=== PATIENT | male | born 1965 | race Caucasian/White ===

== ENCOUNTER 2021-01-05 10:43 | Emergency (ER) | payer MEDICAID ==
[~2021-01-05] VITALS: Ht 157.5 cm; Wt 77.1 kg
[2021-01-05 10:43] VITALS: BP_SYST 144
--- NOTE | 2021-01-05 10:44 | NUR ---
BROUGHT BACK TO BED #4 AND TRIAGED, REPORT GIVEN TO ZEYAD
--- NOTE | 2021-01-05 10:56 | NUR ---
Thais flores in [facility] - 01/05/21 at 1130 by [id number] MD AT BEDSIDE
--- NOTE | 2021-01-05 11:20 | NUR ---
PT STATES HAD A GLF A MONTH AGO AND LEFT HIP STILL HURTS
[2021-01-05] MEDS ORDERED: IBUP-1969 PO (14:08)
[2021-01-05 14:16] VITALS: BP_SYST 135
--- NOTE | 2021-01-05 14:18 | NUR ---
Patient given written and verbal discharge instructions and verbalizes understanding. TRIPP MARTIN MD discussed with patient the results and treatment provided. Patient in stable condition. ID arm band removed. Rx of MOTRIN given. Patient educated on pain management and to follow up with PMD. Pain Scale 4. Opportunity for questions provided and answered. Medication side effect fact sheet provided.
== END 2021-01-05 14:18 | disposition home or self-care (01) ==
LOC: SED 10:43
DX: M25.552 Pain in left hip (principal); M25.562 Pain in left knee
CPT/HCPCS: 73502; 73564; 99284